=== PATIENT | male | born 1960 | race Caucasian/White ===

== ENCOUNTER 2021-05-08 14:18 | Emergency (ER) | payer OTHER, MEDICAID ==
[~2021-05-08] VITALS: Ht 177.8 cm; Wt 81.2 kg
[2021-05-08] MEDS ORDERED: GLIPIZIDE 10 MG10 MG PO (14:31)
[2021-05-08] MEDS ORDERED: JARDIANCE25 MG PO (14:31)
[2021-05-08] MEDS ORDERED: ELIQUIS5 MG PO (14:32)
[2021-05-08] MEDS ORDERED: HYDROCODON-ACE1 EAC7 PO ×2 (14:32→15:19)
[2021-05-08] MEDS ORDERED: CLEOCIN HCL300 MG PO (15:21)
[2021-05-08 15:31] VITALS: BP 119/89
== END 2021-05-08 15:34 | disposition home or self-care (01) ==
LOC: M.ERS 14:18
DX: K04.7 Periapical abscess without sinus (principal); E11.9 Type 2 diabetes mellitus without complications; Z79.899 Other long term (current) drug therapy; Z88.0 Allergy status to penicillin

== ENCOUNTER 2021-05-09 16:09 | Emergency (ER) | payer OTHER, MEDICAID ==
[~2021-05-09] VITALS: Ht 180.3 cm; Wt 81.7 kg
[~2021-05-09 16:09] MED LIST: CLEOCIN HCL300 MG PO; ELIQUIS5 MG PO; GLIPIZIDE 10 MG10 MG PO; HYDROCODON-ACE1 EAC7 PO; JARDIANCE25 MG PO
[2021-05-09 17:01] LABS: ABSOLUTE BASOPHILS 0.1 thou/uL (0.0-0.2); ABSOLUTE EOSINOPHILS 0.1 thou/uL (0.0-0.7); ABSOLUTE LYMPHOCYTES 2.7 thou/uL (0.8-5.3); ABSOLUTE MONOCYTES 0.9 thou/uL (0.0-1.2); ABSOLUTE NEUTROPHILS 6.9 thou/uL (1.6-8.1); BASOPHILS 0.7 %; EOSINOPHILS 0.8 %; HEMOGLOBIN 15.4 gm/dL (14.0-18.0); LYMPHOCYTES 25.3 %; MCH 28.7 pg (26.0-34.0); MCHC 33.4 g/dL (28.0-37.0); MCV 85.8 fL (80.0-100.0); MONOCYTES 8.1 %; MPV 9.9 fl. (7.2-11.1); NUCLEATED RBCS 0 /100WBC; PLATELET COUNT* 163 thou/uL (150-400); POLYS 65.1 %; RBC 5.36 mil/uL (4.50-6.00); RDW-CV 13.7 % (10.5-14.5); WBC 10.6 thou/uL (4.0-11.0)
[2021-05-09 17:06] LABS: CALCIUM 8.4 mg/dL (8.5-10.1); CREATININE 1.2 mg/dL (0.6-1.3)
[2021-05-09 17:17] LABS: ALBUMIN 4.1 g/dL (3.4-5.0); MAGNESIUM 2.2 mg/dL (1.8-2.4); TOTAL BILIRUBIN 0.5 mg/dL (<0.1-1.0); TOTAL PROTEIN 7.6 g/dL (6.4-8.2)
[2021-05-09 18:17] VITALS: BP 148/95
--- NOTE | 2021-05-10 09:17 | EKG ---
[place] [address] ELECTROCARDIOGRAM REPORT Name: BRENDA UMANZOR Room: [facility]#: [id number] Admission: 05/09/21 Attend Phys: Discharge: 05/09/21 Date of : 64 Date of Service: 05/09/21 1630 Report #: [id number] THIS REPORT FOR: //name// [facility] ED Test Date: 2021-05-09 Test Time: 16:30:49 Pat Name: BRENDA UMANZOR Department: Room: Gender: Heat Treatment Technician: NATHAN : 1960 Requested By: Goldie Danielle Order Number: [id number] MD: Dennis Churchill Measurements Intervals [place] Rate: 84 P: 40 GA: 146 QRS: -37 QRSD: 95 T: 37 QT: 372 QTc: 440 Interpretive Statements Sinus rhythm left anterior fasicular block Left ventricular hypertrophy Anterior Q waves, possibly due to LVH Baseline wander in lead(s) V2 No previous ECG available for comparison Electronically Signed On 05-10-2021 9:16:52 [employer] by Dennis Churchill [email or web address] <ELECTRONICALLY SIGNED> By: Dennis Churchill MD, FAC 05/10/21 0916 1630 1630 Dennis Churchill MD, [facility] /EPI
== END 2021-05-09 18:20 | disposition home or self-care (01) ==
LOC: M.ERS 16:09
PROVIDERS: Nurse Practitioner Family
DX: G89.18 Other acute postprocedural pain (principal); K08.89 Other specified disorders of teeth and supporting structures; R07.89 Other chest pain; K91.841 Postprocedural hemorrhage of a digestive system organ or structure following other procedure; E11.65 Type 2 diabetes mellitus with hyperglycemia; Z86.718 Personal history of other venous thrombosis and embolism; Z79.2 Long term (current) use of antibiotics; Z79.899 Other long term (current) drug therapy; Z88.0 Allergy status to penicillin